=== PATIENT | male | born 1980 | race Caucasian/White ===

== ENCOUNTER 2017-03-23 02:30 | Emergency (ER) | payer BC ==
--- NOTE | 2017-03-23 03:27 | EDM.PDOCBH ---
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 He states that he lives in [place], but does 2 week rotations here in [place]. He states that he was home for [place], then flew out here on 03/17/2017. He states that after he arrived, he received a telephone call from his stating that she wanted a divorce. He states that this was completely unexpected. He states that he has been having difficulty coping with this news, made worse because he is out here alone, without any family support, until his current rotation and on 04/01/2017. Further, his son's birthday was on 03/19/2019. He states that he has had great difficulty sleeping, having slept only about 5 hours over the past 3 days. He states that he has no appetite for food, and has lost 9 pounds over the past few days. He states that he has gone to the gym, but that it does not get his mind off his situation. He states that he is not suicidal, just emotionally upset. The patient states that he has a history of depression in 2007 after his brother . He states that he was on Zoloft for 3-6 months. He has never required psychiatric hospitalization, and there is no prior history of suicidal ideation or attempt. The patient drinks alcohol socially. His last drink was on 03/15/2017. There is no history of recreational drug use. - Related Data Allergies Allergy/AdvReac Type Severity Reaction Status Date / Time erythromycin base Allergy Hives Verified 03/23/17 02:37 Penicillins Allergy Hives Verified 03/23/17 02:37 Past Medical History Respiratory History: Reports: Asthma, Sleep Apnea (nightly CPAP) Psychiatric History: Reports: Depression - Past Surgical History HEENT Surgical History: Reports: Naso-Sinus Surgery (Turbinate reduction) GI Surgical History: Reports: Bariatric Procedure (Vertical sleeve gastrectomy 2016) Musculoskeletal Surgical History: Reports: Carpal Tunnel (left), Nerve Relocation (left ulnar) Social & Family History - Tobacco Use Smoking Status *Q: Former Smoker Years of Tobacco use: 4 Packs/Tins Daily: 0.5 Month Tobacco Last Used: Quit 2009 Second Hand Smoke Exposure: No - Caffeine Use Caffeine Use: Reports: Coffee - Alcohol Use Alcohol Use History: Yes Alcohol Use Frequency: Socially - Recreational Drug Use Recreational Drug Use: No - Living Situation & Occupation Living situation: Reports: , with Spouse, with Family (2 sons) 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 Constitutional: Reports: Decreased Appetite, Weight Loss HEENT: Reports: No Symptoms Respiratory: Reports: No Symptoms Cardiovascular: Reports: No Symptoms Endocrine: Reports: No Symptoms GI/Abdominal: Reports: No Symptoms : Reports: No Symptoms Musculoskeletal: Reports: No Symptoms Skin: Reports: No Symptoms Neurological: Reports: No Symptoms Psychiatric: Reports: Anxiety, Depression Hematologic/Lymphatic: Reports: No Symptoms Immunologic: Reports: No Symptoms ED EXAM, BEHAVIORAL HEALTH - Physical Exam Exam: See Below Exam Limited By: No Limitations General Appearance: Alert, WD/WN, Mild Distress (tearful at times) Eye Exam: Bilateral Eye: Normal Inspection Ears: Normal External Exam, Hearing Grossly Normal Nose: Normal Inspection, No Blood Throat/Mouth: Normal Inspection, Normal Lips, Normal Voice, No Airway Compromise Head: Atraumatic, Normocephalic Neck: Normal Inspection, Full Range of Motion Respiratory/Chest: No Respiratory Distress, Lungs Clear, Normal Breath Sounds, No Accessory Muscle Use Cardiovascular: Normal Peripheral Pulses, Regular Rate, Rhythm, No Gallop, No JVD, No Murmur, No Rub GI/Abdominal: Normal Bowel Sounds, Soft, Non-Tender, No Organomegaly, No Distention, No Abnormal Bruit, No Mass (Male) Exam: Deferred Rectal (Males) Exam: Deferred Back Exam: Normal Inspection, Full Range of Motion, NT Extremities: Normal Inspection, Normal Range of Motion, No Pedal Edema, Normal Capillary Refill Neurological: Alert, Normal Cognition, No Motor/Sensory Deficits, Oriented x 3 Psychiatric: Normal Affect, Tearful Skin Exam: Warm, Dry, Intact, Normal color, No rash COURSE, BEHAVIORAL HEALTH COMP - Course Vital Signs: Last Vital Signs Temp 36.4 C 03/23/17 02:37 Pulse 85 03/23/17 02:37 Resp 20 03/23/17 02:37 BP 149/98 H 03/23/17 02:37 Pulse Ox 99 03/23/17 02:37 Orders, Labs, Meds: Active Orders 24 hr Category Date Time Status EKG Documentation Completion [RC] STAT Care 03/23/17 02:42 Active ACETAMINOPHEN [CHEM] Stat Lab 03/23/17 03:00 Received CBC WITH MANUAL DIFF [HEME] Stat Lab 03/23/17 03:00 Received COMPREHENSIVE METABOLIC PN,CMP [CHEM] Stat Lab 03/23/17 03:00 Received DRUG SCREEN, URINE [URCHEM] Stat Lab 03/23/17 02:42 Uncollected ETHANOL BLOOD MEDICAL [CHEM] Stat Lab 03/23/17 03:00 Received SALICYLATE [CHEM] Stat Lab 03/23/17 03:00 Received TSH [CHEM] Stat Lab 03/23/17 03:00 Received Medical Clearance: 03/23/17 03:19 The patient is emotionally upset and feeling depressed following unexpected notification from his on 03/17/2017 that she wants a divorce. The situation is made worse because the patient is working out here alone, without any family, until 04/01/2017. He has slept a total of 5 hours over the past several days and has lost about 9 pounds due to inability to eat. The patient is not suicidal, and I don't believe that he requires acute psychiatric hospitalization, however, I think his situation would be vastly improved if he were able to get some sleep. I am going to write an [employer]'s prescription for Ativan. He then agrees to follow-up with [facility] tomorrow morning, 03/24/2017. I will write a note for work for him to be off for the next few days, which [facility] can extend if they feel necessary. Departure - Departure Time of Disposition: 03:22 Disposition: Home, Self-Care 01 Condition: Fair Clinical Impression: Situational depression, Insomnia, Anorexia - Discharge Information Referrals: PCP,None [Primary Care Provider] - Forms: ED Department Discharge, ED Return to Work/School Form Additional Instructions: You were seen in the emergency room for depression after being told by your that she wants a divorce. Based on your evaluation, we do not feel that you require psychiatric hospitalization at this time. In order to help you sleep, you have been prescribed Ativan. Take one tablet up to every 6 hours, as needed for anxiety and insomnia. If you take Ativan, do not drive or operate heavy machinery for 10 hours afterwards. A note for work has been written. Follow-up at [facility] tomorrow morning, 03/24/2017. [address] [phone] If any other problems, including worsening depression or feeling suicidal, please do not hesitate to return to the ER. - My Orders Last 24 Hours: My Active Orders 03/23/17 02:42 EKG Documentation Completion [RC] STAT DRUG SCREEN, URINE [URCHEM] Stat 03/23/17 03:00 ACETAMINOPHEN [CHEM] Stat CBC WITH MANUAL DIFF [HEME] Stat COMPREHENSIVE METABOLIC PN,CMP [CHEM] Stat ETHANOL BLOOD MEDICAL [CHEM] Stat SALICYLATE [CHEM] Stat TSH [CHEM] Stat - Assessment/Plan Last 24 Hours: My Active Orders 03/23/17 02:42 EKG Documentation Completion [RC] STAT DRUG SCREEN, URINE [URCHEM] Stat 03/23/17 03:00 ACETAMINOPHEN [CHEM] Stat CBC WITH MANUAL DIFF [HEME] Stat COMPREHENSIVE METABOLIC PN,CMP [CHEM] Stat ETHANOL BLOOD MEDICAL [CHEM] Stat SALICYLATE [CHEM] Stat TSH [CHEM] Stat
[2017-03-23 03:41] LABS: ACETAMINOPHEN 0 ug/mL (10-30)
== END 2017-03-23 03:43 | disposition home or self-care (01) ==
LOC: JD.ED 02:30
DX: F43.21 Adjustment disorder with depressed mood (principal); G47.00 Insomnia, unspecified; R63.0 Anorexia; Z88.1 Allergy status to other antibiotic agents; Z88.0 Allergy status to penicillin; Z87.891 Personal history of nicotine dependence
CPT/HCPCS: 36415; 80053; 80306; 84443; 85025; 93005; 99284; G0480; 99283